=== PATIENT | male | born 1995 | race Caucasian/White ===

== ENCOUNTER 2025-01-26 09:57 | Outpatient (AMB) | payer OTHER, MEDICAID, SELFPAY ==
--- NOTE | 2025-01-26 10:08 | A.OFFVIS_ITS ---
Intake Visit Reasons: 1 year Accompanied by: staff member Allergies sulfur dioxide Allergy (Unknown, Verified 01/26/25 10:08) Unknown Medication List - Last Reconciled 01/26/25 by Harika Vaughn CNP fexofenadine ([facility]) 180 mg PO DAILY ketoconazole 2% 1 appl topical levetiracetam 500 mg PO BID mupirocin 2% 1 appl topical BID-TID quetiapine mg PO HPI Comments Details: 29-year-old RH man with underlying diagnosis of Down syndrome, autism, non-verbal, and generalized seizure disorder which started in 2019 when he was taken to [facility] after a generalized convulsion. He was living in a fci and his health care proxy was his mom (Queta Hernandez). He was doing okay. He was taking levetiracetam twice a day. No seizures. He goes to day program 5 days a week which he enjoyed. Sleep was okay. [facility] Medical History (Updated 01/26/25 @ 10:11 by Harika Vaughn CNP) Down syndrome Autism Review of Systems Const Denies chills, Denies daytime sleepiness, Denies difficulty sleeping, Denies fatigue, Denies fever(s), Denies frequent falls, Denies headache(s), Denies increased appetite, Denies poor appetite, Denies snoring, Denies weakness, Denies weight gain and Denies weight loss Eyes Denies loss of vision ENT Denies vertigo, Denies dizziness and Denies headache(s) Card Denies chest pain at rest, Denies chest pain with activity, Denies syncope, Denies leg edema and Denies palpitations Resp Denies snoring GI Denies constipation, Denies heartburn, Denies diarrhea and Denies nausea Denies urinary frequency, Denies urinary incontinence and Denies urinary urgency Musc Denies abnormal gait, Denies numbness and Denies tingling Skin/Breast Denies dry skin and Denies rash Neuro Denies abnormal gait, Denies vertigo, Denies dizziness, Denies syncope, Denies frequent falls, Denies headache(s), Denies lack of coordination, Denies loss of vision, Reports memory loss, Denies numbness, Denies restless legs, Denies seizure-like activity, Denies tingling, Denies paresthesias, Denies tremor(s) and Denies weakness Psych Denies anxiety, Denies depression, Denies auditory hallucinations, Reports memory loss, Denies visual hallucinations and Denies suicidal ideation Endo Denies fatigue and Denies palpitations Physical Exam Const Other: General Appearance:? normal, in no acute distress. Skin:? no rashes, no significant birthmarks. Heart:? S1, S2 normal, no murmurs. Lungs:? clear anteriorly and posteriorly. Extremities:? no edema. Psych:? alert, cooperative with exam. Neuro Other: Mental Status:?Alert and awake with no verbal output, minimally follows commands Cranial Nerves:?Pupils are equal, round and reactive to light. External occular muscles are intact. Visual alfaro are full. Face is symmetrical. Facial sensations are normal. Tongue is midline. Palate elevates symmetrically. Shoulder shrugging is normal. Hearing to bedside conversation is normal. Sensory Exam:?....? Coordination:?No ataxia,?no titubation.? Gait Exam: Within normal limits. Extrapyramidal System:?No tremor, rigidity with normal facial expressions.? Pronator Drift:?Not present.? Involuntary Movements:?No tremors seen.? Speech:?No verbal output. Assessment & Plan Assessment & Plan (1) Generalized seizure disorder: Code(s): G40.309 - Generalized idiopathic epilepsy and epileptic syndromes, not intractable, without status epilepticus Category: Medical Plan: Continue levetiracetam 500mg 1 tablet by mouth twice a day. Coding Level of Care Code Est Pt Level 4 (38079) Diagnoses Generalized seizure disorder G40.309
--- OUTSIDE RECORDS SUMMARY | 2025-01-26 11:44 | XMS_ITS | Encounter Summary ---
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 Name Role Phone Unavailable Primary Care Provider Unavailabl e Encounter Details Date Type Department Care Team (Late st Contact Info) Description 08/12/2017 Conversion Encounter [facility] [address] [id number] Social History Tobacco Use Types Packs/Day Years Used Date Smoking Tobacco: Never Assessed Sex and Gender Information Value Date Recorded Sex Assigned at Not on file Legal Sex Male 6:08 PM EDT Gender Identity Not on file Sexual Orientation Not on file documented as of this encounter Plan of Treatment Not on file documented as of this encounter Visit Diagnoses Not on filedocumented in this encounter
--- OUTSIDE RECORDS SUMMARY | 2025-01-26 11:44 | XMS_ITS | Clinical Summary ---
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 Name Role Phone Unavailable Primary Care Provider Unavailabl e Immunizations Immunization Administration Dates Next Due DTaP 02/01/2000, 7,1995,06/05,1995 H1N1 01/13/2009 Hep B, ped/adol 1995,1995,1995 Hib (PRP-T) 05/05/1996, 6,1995,04/04 IPV 02/01/2000 Influenza 02/05/2007, 6,12/30/2004,12/27 Influenza, injectable, quadrivalent 11/25,01/06/2012,01/06/2011,12/21,12/26/2008,01/25/2008 Influenza, injectable, quadr ivalent, preservative free 12/23/2013 MMR 02/08/1999,05/05/1996 Meningococcal Conj (Menactra) MCV4P 02/20/2011,1 04/07/2006 OPV 1995,1995,1995 Tdap 01/18/2006 Varicella 08/24/1996 Family History Relation Name Status Comments Father Alive hypertension Maternal Grandfather Alive CAD, hy pertension Maternal Grandmother Alive hyperte nsion, hyperlipidemia Mother Alive healthy Other Alive Siblings: healt hy Paternal Grandfather Paternal Grandmother Social History Tobacco Use Types Packs/Day Years Used Date Smoking Tobacco: Never Assessed Sex and Gender Information Value Date Recorded Sex Assigned at Not on file Legal Sex Male 6:08 PM EDT Gender Identity Not on file Sexual Orientation Not on file Last Filed Vital Signs Vital Sign Reading Time Taken Comments Blood Pressure 128/68 03/14/2013 12:00 AM EST Pulse 116 03/06/2010 12:00 AM EST Temperature 36.8 C (98.2 F) 03/14/2013 12:00 AM EST Respiratory Rate - - Oxygen Saturation 92% 03/06/2010 12: 00 AM EST Inhaled Oxygen Concentration - - Weight 60.2 kg (132 lb 12.8 oz) 013 12:00 AM EST Height 160 cm (5' 3 ) 03/14/2013 12:00 AM EST Body Mass Index 23.52 03/14/2013 12:00 AM EST Plan of Treatment Health Maintenance Due Date Last Done Comments Varicella Vaccines (2 of 2 - 2-dose childhood series) 03/08/1999 08/24/1996 DTaP,Tdap,and Td Vaccines (7 - Td or Tdap) 01/19/2016 01/18/2006, 02/01/2000, 08/04/1996, Additional history exists HPV Vaccines (1 - 3-dose SCDM series) 2022 Influenza Vaccines (#1) 2024 12/24/19 14, 12/21/2012, 01/06/2012, Additional history exists COVID-19 Vaccine (2024- season) 2024 Hepatitis B Vaccines Completed 1995, 1995, 1995 HIB Vaccines Completed 05/05/1996, 07/24, 1995, Additional history exists MMR Vaccines Completed 02/08/1999, 05/05/1996 IPV Vaccines Completed 02/01/2000, 07/24, 1995, Additional history exists Meningococcal Vaccine Completed 02/20/2011, 007 Hepatitis A Vaccines Aged Out No long er eligible based on patient's age to complete this topic Men B Vaccine Aged Out No longer elig ible based on patient's age to complete this topic Pneumococcal Vaccine Aged Out No long er eligible based on patient's age to complete this topic
== END 2025-01-26 10:17 | disposition home or self-care (01) ==
LOC: HO.HSM 09:57
PROVIDERS: PCP Student in an Organized Health Care Education/Training Program; Referring Provider Pediatrics; Visit Provider Registered Nurse
DX: G40.309 Generalized idiopathic epilepsy and epileptic syndromes, not intractable, without status epilepticus (principal)
CPT/HCPCS: 99214